=== PATIENT | female | born 1960 | race Caucasian/White ===

== ENCOUNTER 2019-10-25 15:24 | Emergency (ER) | payer OTHER ==
--- NOTE | 2019-10-25 15:31 | PDOC ---
Rapid Medical Evaluation Time Seen by Provider: 10/25/19 15:26 Medical Evaluation: 10/25/19 15:27 I performed a brief in-person evaluation of this patient. Pt is a 59 y/o female with complaint of rash all over her body for the last 3 months. She has been unable to see her primary doctor for this problem. She complains of itching. H/o asthma, + smoker Pertinent physical exam findings: no rash appreciated to the abdomen. I have ordered the following: deferred to treating provider's discretion Patient to proceed to ED for further evaluation. Discharge Disposition - Diagnosis Rash - Referrals - Patient Instructions - Post Discharge Activity
[2019-10-25 15:33] VITALS: BMI 29.0
[2019-10-25] MEDS ORDERED: predniSONE 20 MG TABLET (UD) PO ONE (16:32)
[2019-10-25] MEDS ORDERED: FAMOTIDINE 20 MG/50 ML IVPB 20 MG/50 ML MG IVPB ONE ×2 (16:32→17:25)
--- NOTE | 2019-10-25 16:33 | PDOC ---
History of Present Illness - General Chief Complaint: Pain Stated Complaint: RASH Time Seen by Provider: 10/25/19 15:26 History Source: Patient Exam Limitations: No Limitations Past History - Travel History Traveled outside of the country in the last 30 days: No Close contact w/someone who was outside of country & ill: No - Medical History Allergies/Adverse Reactions: Allergies Allergy/AdvReac Type Severity Reaction Status Date / Time ibuprofen [From Motrin] Allergy Verified 10/25/19 15:33 Home Medications: Ambulatory Orders hydrOXYzine PAMOATE [Vistaril -] 25 mg PO TID PRN #14 capsule 10/25/19 Asthma: Yes COPD: No - Psycho-Social/Smoking History Smoking History: Current every day smoker Number of Cigarettes Smoked Daily: 10 Information on smoking cessation initiated: No Review of Systems - Review of Systems Able to Perform ROS?: Yes Comments:: 10/25/19 20:08 CONSTITUTIONAL: Absent: fever, chills, diaphoresis, generalized weakness, malaise, loss of appetite HEENT: Absent: rhinorrhea, nasal congestion, throat pain, throat swelling, difficulty swallowing, mouth swelling, ear pain, eye pain, visual Changes CARDIOVASCULAR: Absent: chest pain, loss of consciousness, palpitations, irregular heart rate, peripheral edema RESPIRATORY: Absent: cough, shortness of breath, dyspnea with exertion, orthopnea, wheezing, stridor, hemoptysis GASTROINTESTINAL: Present: Abdominal pain Absent: abdominal distension, nausea, vomiting, diarrhea, constipation, melena, hematochezia GENITOURINARY: Absent: dysuria, frequency, urgency, hesitancy, hematuria, flank pain, genital pain MUSCULOSKELETAL: Absent: myalgia, arthralgia, joint swelling SKIN: Present, itching, rash Absent: pallor HEMATOLOGIC/IMMUNOLOGIC: Absent: easy bleeding, easy bruising, lymphadenopathy, frequent infections ENDOCRINE: Absent: unexplained weight gain, unexplained weight loss, heat intolerance, cold intolerance NEUROLOGIC: Absent: headache, focal weakness or paresthesias, dizziness, unsteady gait, seizure, mental status changes, bladder or bowel incontinence PSYCHIATRIC: Absent: anxiety, depression, suicidal or homicidal ideation, hallucinations. Is the patient limited Sammar[place] proficient: No *Physical Exam - Vital Signs Last Vital Signs Temp Pulse Resp BP Pulse Ox 78 18 127/92 99 10/25/19 15:25 10/25/19 15:25 10/25/19 15:25 10/25/19 15:25 - Physical Exam 10/25/19 20:09 GENERAL: Well developed, well nourished. Awake and alert. No acute distress. HEENT: Normocephalic, atraumatic. PERRLA, EOMI. No conjunctival pallor. Sclera are non- icteric. Moist mucous membranes. Oropharynx is clear. NECK: Supple. Full ROM. No JVD. Carotid pulses 2+ and symmetric, without bruits. No thyromegaly. No lymphadenopathy. CARDIOVASCULAR: Regular rate and rhythm. No murmurs, rubs, or gallops. Distal pulses are 2+ and symmetric. PULMONARY: No evidence of respiratory distress. Lungs clear to auscultation bilaterally. No wheezing, rales or rhonchi. ABDOMINAL: Soft. Non-tender. Non-distended. No rebound or guarding. No organomegaly. No rmoactive bowel sounds. MUSCULOSKELETAL Normal range of motion at all joints. No bony deformities or tenderness. No CVA tenderness. EXTREMITIES: No cyanosis. No clubbing. No edema. No calf tenderness. SKIN: Erythemic pruritic patches to the chest, lower back upper arms with no evidence of wheals, papules or macules. Warm and dry. Normal capillary refill. No jaundice. NEUROLOGICAL: Alert, awake, appropriate. Cranial nerves 2-12 intact. No deficits to light touch and temperature in face, upper extremities and lower extremities. No motor deficits in the in face, upper extremities and lower extremities. Normoreflexic in the upper and lower extremities. Normal speech. Toes are down-going b ilaterally. Gait is normal without ataxia. PSYCHIATRIC: Cooperative. Good eye contact. Appropriate mood and affect. ED Treatment Course - LABORATORY CBC & Chemistry Diagram: 10/25/19 17:20 10/25/19 17:20 Medical Decision Making - Medical Decision Making 10/25/19 20:10 Patient is a 59-year-old female with past medical history of cancerous masses (unable to specify) with removal, presents to the ER today for a rash and itching for the past 2 weeks. She states she been taking Benadryl at home with no relief of her symptoms. She states she has a mass in her left upper quadrant that comes and goes. She states that this mass also turns red at times. Is not currently swollen at this time. She states that nothing is helped the itching. Denies any new allergies, medications, food exposures. Denies fevers, chills, nausea, vomiting and diarrhea. A/P: Pruritus On exam patient has gross pruritus throughout her whole body. She is scratching even though there is no obvious rash to certain body parts. She does have erythematous patches to the chest upper arms and lower back without evidence of wheals. We will order a broad work-up to include Lyme, mono, syphilis and CTAP to rule out splenomegaly. IV Benadryl, steroids and Pepcid given for symptomatic relief. Explained to patient that pruritus is a very vague symptom and we might not have a definitive diagnosis tonight however we will rule out life threats including cancer for which she is most concerned about. Lab work shows a white count of 11 no left shift. Electrolytes grossly unremarkable. Patient pending CT results. Signout given to BARNEY Baker. Suspect patient will be discharged home. Discharge - Discharge Information Problems reviewed: Yes Clinical Impression/Diagnosis: Rash, Generalized pruritus Disposition: HOME - Additional Discharge Information Prescriptions: hydrOXYzine PAMOATE [Vistaril -] 25 mg PO TID PRN #14 capsule PRN Reason: For Itching - Follow up/Referral Referrals: ON STAFF,NOT [Primary Care Provider] - - Patient Discharge Instructions Patient Printed Discharge Instructions: DI for Itching Additional Instructions: Please moisturize your skin with hypoallergenic lotion . Take hydroxyzine prescribed for itching. it can make you sleepy. do not drive or operate heavy machinery after taking the medication - Post Discharge Activity Work/Back to School Note: Back to Work
[2019-10-25] MEDS ORDERED: predniSONE 20 MG TABLET (UD) ONE (17:25)
[2019-10-25 17:31] LABS: BASO % 0.9 % (0-2.0); HEMATOCRIT 43.9 % (32.4-45.2); HEMOGLOBIN 14.7 GM/dL (10.7-15.3); LYMPH % 30.3 % (8-40); MCH 29.8 pg (25.7-33.7); MCHC 33.4 g/dl (32.0-36.0); MEAN CELL VOLUME 89.3 fl (80-96); MEAN PLT VOLUME 7.9 fl (7.5-11.1); MONO % 5.5 % (3.8-10.2); NEUT % 62.3 % (42.8-82.8); PLATELET COUNT 294 K/MM3 (134-434); RBC 4.92 M/mm3 (3.60-5.2); RDW 13.4 % (11.6-15.6); WHITE BLOOD COUNT 11.7 K/mm3 (4.0-10.0)
[2019-10-25 17:39] LABS: INR 1.01 (0.83-1.09); PROTHROMBIN TIME (PATIENT) 11.9 SEC (9.7-13.0)
[2019-10-25 17:59] LABS: ALBUMIN 4.3 g/dl (3.4-5.0); BILIRUBIN,TOTAL 0.9 mg/dL (0.2-1); BLOOD UREA NITROGEN 24.6 mg/dL (7-18); CALCIUM 10.3 mg/dL (8.5-10.1); CREATININE 0.7 mg/dL (0.55-1.3); POTASSIUM 4.1 mmol/L (3.5-5.1); TOT PROT 9.5 g/dl (6.4-8.2)
[2019-10-25 18:01] LABS: EPI CELLS 15 /uL (0-25.1); HYALINE CASTS 1 /uL (0-3.1); URINE APPEARANCE CLEAR; URINE BACTERIA 188 /uL (0-1359); URINE BILIRUBIN NEGATIVE (NEGATIVE); URINE COLOR YELLOW; URINE GLUCOSE (UA) NEGATIVE (NEGATIVE); URINE KETONE TRACE (NEGATIVE); URINE LEUK ESTERASE NEGATIVE (NEGATIVE); URINE NITRITE NEGATIVE (NEGATIVE); URINE PROTEIN NEGATIVE (NEGATIVE); URINE RBC 15 /uL (0-23.9); URINE UROBILINOGEN 0.2 mg/dL (0.2-1.0); URINE WBC 5 /uL (0-25.8)
--- NOTE | 2019-10-25 19:50 | PDOC ---
*Physical Exam - Vital Signs Last Vital Signs Temp Pulse Resp BP Pulse Ox 78 18 127/92 99 10/25/19 15:25 10/25/19 15:25 10/25/19 15:25 10/25/19 15:25 ED Treatment Course - LABORATORY CBC & Chemistry Diagram: 10/25/19 17:20 10/25/19 17:20 - ADDITIONAL ORDERS Additional order review: Laboratory Results 10/25/19 10/25/19 10/25/19 17:20 17:20 17:20 PT with INR 11.90 INR 1.01 Sodium 138 Potassium 4.1 Chloride 104 Carbon Dioxide 30 Anion Gap 5 L BUN 24.6 H Creatinine 0.7 Est GFR (CKD-EPI)AfAm 110.69 Est GFR (CKD-EPI)NonAf 95.50 Random Glucose 88 Calcium 10.3 H Total Bilirubin 0.9 AST 14 L ALT 39 Alkaline Phosphatase 90 Total Protein 9.5 H Albumin 4.3 Lipase 297 Urine Color Yellow Urine Appearance Clear Urine pH 5.0 Ur Specific [place] 1.023 Urine Protein Negative Urine Glucose (UA) Negative Urine Ketones Trace H Urine Blood 1+ H Urine Nitrite Negative Urine Bilirubin Negative Urine Urobilinogen 0.2 Ur Leukocyte Esterase Negative Urine WBC (Auto) 5 Urine RBC (Auto) 15 Urine Casts (Auto) 1 U Epithel Cells (Auto) 15 Urine Bacteria (Auto) 188 10/25/19 17:20 RBC 4.92 MCV 89.3 MCHC 33.4 RDW 13.4 MPV 7.9 Neutrophils % 62.3 Lymphocytes % 30.3 Monocytes % 5.5 Eosinophils % 1.0 Basophils % 0.9 - Medications Given in the ED: ED Medications Discontinued Medications Generic Name Dose Route Start Last Admin Trade Name Ronaldq PRN Reason Stop Dose Admin Diphenhydramine HCl 50 mg 10/25/19 16:32 10/25/19 17:32 Benadryl Injection - IVPB 10/25/19 16:33 50 mg ONCE ONE Administration Famotidine/Sodium Chloride 20 mg in 50 mls @ 100 mls/hr 10/25/19 16:32 10/25/19 17:33 Pepcid 20 Mg Premixed Ivpb - IVPB 10/25/19 17:01 100 mls/hr ONCE ONE Administration Prednisone 60 mg 10/25/19 16:32 10/25/19 17:33 Deltasone - PO 10/25/19 16:33 60 mg ONCE ONE Administration Medical Decision Making - Medical Decision Making 10/25/19 20:25 patient s/p IVF. labs wnl. CTAP : diverticuloses without diverticulitis. no acute findings. will give hydroxyzine. patient reports itching has got better,. Discharge - Discharge Information Problems reviewed: Yes Clinical Impression/Diagnosis: Rash, Generalized pruritus Disposition: HOME - Additional Discharge Information Prescriptions: hydrOXYzine PAMOATE [Vistaril -] 25 mg PO TID PRN #14 capsule PRN Reason: For Itching - Follow up/Referral Referrals: ON STAFF,NOT [Primary Care Provider] - - Patient Discharge Instructions Patient Printed Discharge Instructions: DI for Itching Additional Instructions: Please moisturize your skin with hypoallergenic lotion . Take hydroxyzine prescribed for itching. it can make you sleepy. do not drive or operate heavy machinery after taking the medication - Post Discharge Activity Work/Back to School Note: Back to Work
[2019-10-25 21:01] VITALS: BP 146/73; PULSE 72; TEMP 98.2
== END 2019-10-25 21:01 | disposition home or self-care (01) ==
LOC: JER 15:24
PROC: 3E033GC Introduction of Other Therapeutic Substance into Peripheral Vein, Percutaneous Approach (ICD-10-PCS; principal; 2019-10-25)
DX: R21 Rash and other nonspecific skin eruption (principal)
CPT/HCPCS: 36415; 74177-TC; 80053; 81003; 83690; 85025; 85610; 86308; 86618; 86780; 87086; 99285-25; Q9967